=== PATIENT | male | born 1970 | race Caucasian/White ===

== ENCOUNTER 2024-11-27 13:28 | Observation (INO) | payer MEDICAID, SELFPAY ==
[2024-11-27] VITALS (8 sets, daily range): BP systolic 96–144; BP diastolic 54–88; PULSE 60–77; RESP 12–20; TEMP 36.7–36.8; O2SAT 97–98; BMI 49.7
--- NOTE | ~2024-11-27 | XR_ITS ---
EXAMINATION: XR CHEST 2 VIEWS HISTORY: chest pain COMPARISON: There are no prior studies available for comparison. FINDINGS: PA and lateral views of the chest are submitted. The lungs are expanded and clear. There is no pleural effusion, pneumothorax, or pulmonary vascular congestion. The heart is normal in size. The bones are intact. XR/XR chest 2V IMPRESSION: Clear lungs. Electronically signed by: Wenceslao Messer MD 11/27/2024 02:14 PM EDT
--- NOTE | 2024-11-27 13:31 | ECG_ITS ---
Test Reason : CHEST PAIN Blood Pressure : */* mmHG Vent. Rate : 73 BPM Atrial Rate : 73 BPM P-R Int : 168 ms QRS Dur : 92 ms QT Int : 362 ms P-R-T Axes : 50 -15 2 degrees QTcB Int : 398 ms Normal sinus rhythm Inferior infarct , age undetermined Cannot rule out Anterior infarct , age undetermined Abnormal ECG No previous ECGs available Referred By: Generic ED Physician Electronically Signed By: SAM AGUILAR
--- NOTE | 2024-11-27 13:54 | ED.CHESTPAIN ---
HPI - Chest Pain General Chief Complaint: Chest Pain Stated Complaint: CP/discomfort Time Seen by Provider: 11/27/24 16:04 Source: patient Mode of arrival: ambulatory Limitations: no limitations History of Present Illness ED Provider: Dr. Serna HPI narrative: 54-year-old male history of diabetes, obesity, occasional tobacco use, family history of cardiac problem on dad presented hospital today for evaluation of left-sided chest pain. Patient stated that he had achiness in the left shoulder earlier today. However he went to [facility] and noticed at his left shoulder pain was worsening and radiates into his left chest. Patient stated that it feels like a fullness in his chest. Patient is did has been an episode of nausea along with the shortness of breath in that moment. He currently is feeling better at this time. However he still has minor left-sided chest pain in the left shoulder pain he states it is 3/10 in nature. He did take 3 tablets of baby aspirin prior to arrival. He has Holter monitor performed in the past. He has follow up with his primary care doctor for that. He does have evaluation for vertigo as well. He noted that he becomes more dizzy when he ambulates. Related Data Allergies Allergy/AdvReac Type Severity Reaction Status Date / Time amoxicillin AdvReac Diarrhea Verified 11/27/24 13:52 clindamycin AdvReac Diarrhea Verified 11/27/24 13:52 Review of Systems Review of Systems: Pertinent review of systems as mentioned in HPI. All other system otherwise negative. [facility] Past Medical History [facility] Narrative: Medical history as mentioned in HPI Social History Social History Alcohol intake: current Smoked in Last 30 Days: No Use of substances other than those prescribed or required for medical reasons: No Advance Directives: No Advance Directives Information Provided: No Do you have a plan to hurt others: No Plan Physical Exam Exam: Exam: General: Pleasant, no distress, interacting appropriately Head: Normacephalic, atraumatic ENT: oral mucosa moist, neck supple, no tracheal deviation Cardiovascular: regular rate, regular rhythm, no murmurs, rubbing, gallops Respiratory: CTAB, no wheeze, rales, rhonchi Extremities: No swelling in lower extremities appreciated Neurological: Awake and alert, no facial droop noted Skin: Warm and dry Psychiatric: Appropriate mood and thoughts Vital Signs: Vital Signs: Last Vital Signs Temp 98.3 F 11/27/24 19:35 Pulse 73 11/27/24 19:35 Resp 20 11/27/24 19:35 BP 103/68 11/27/24 19:35 Pulse Ox 97 11/27/24 19:35 O2 Del Method Room Air 11/27/24 19:35 BMI result Body Mass Index 49.7 Course Course Course Narrative: Rapid medical examination performed in triage by Maude Page PA-C. Patient is a 54 year old assigned male at presenting to the emergency department with chest pain, nausea, fatigue, and dizziness. Detailed physical exam and review of systems are deferred to the substance abuse clinician. EKG, labs, imaging, and swabs ordered. Patient placed back in the waiting room pending room availability and results. Medications Administered Discontinued Medications Generic Name Dose Route Start Last Admin Trade Name Freq PRN Reason Stop Dose Admin Acetaminophen 975 mg 11/27/24 19:59 11/27/24 20:06 Acetaminophen 325 Mg Tablet PO 11/27/24 20:00 975 mg ONCE ONE Administration Aspirin 81 mg 11/27/24 16:28 11/27/24 17:12 Aspirin 81 Mg Tab.Chew PO 11/27/24 16:29 81 mg ONCE ONE Administration Sodium Chloride 1,000 mls @ 999 mls/hr 11/27/24 18:15 11/27/24 18:53 Ns IV 11/27/24 19:15 999 mls/hr .Q1H1M JARED Administration Nitroglycerin 0.4 mg 11/27/24 16:28 11/27/24 17:11 Nitroglycerin 0.4 Mg Tab.Subl SUBLINGUAL 11/27/24 16:29 0.4 mg ONCE ONE Administration Medical Decision Making Medical Decision Making [facility] Narrative: 54-year-old male presented hospital today for evaluation of left-sided chest pain. It started around 13:00 today. Review patient's EKG no sign of STEMI, 1st troponin is negative chest x-ray is unremarkable. Patient's lab work did not show any signs of significant abnormality that can cause his chest pain. At this time we will plan to give patient 81 mg of aspirin to complete his full load of aspirin to 324 mg. We will plan to give him 0.4 mg of nitroglycerin. We will plan to repeat a troponin here as well. Based on the patient's risk assessment. Patient has heart score of 4. We will reassess his nitroglycerin he will help with his chest pain. Patient's blood pressure dropped into the 90 systolic after nitroglycerin. Did give patient a bolus IV fluid. Blood pressure has improved to 1 0 . We will plan to admit patient for chest pain obs. His chest pain is better at this time. Given patient's risk factors. We will continue to observe the patient. Differential Diagnosis Differential Diagnoses: The differential diagnosis associated with the presentation includes ACS, CAD, STEMI, NSTEMI Lab Data MDM Lab Attestation statement: I reviewed the patient's lab results. 11/27/24 14:34 11/27/24 14:34 Labs: Lab Results 11/27/24 11/27/24 Range/Units 14:34 16:38 WBC 7.2 (4.8-10.8) X10*3/uL RBC 6.13 H (4.60-5.80) X10*6/uL Hgb 12.6 L (14.0-18.0) g/dl Hct 40.7 L (42.0-52.0) % MCV 66.4 L (80.0-98.0) fL MCH 20.6 L (27.0-33.0) pg MCHC 31.0 (31.0-36.0) g/dl RDW 17.1 H (11.0-16.0) % Plt Count 276 (160-400) X10*3/uL MPV 9.0 L (9.4-12.4) fL Immature Gran % (Auto) 0.6 H (0.0-0.4) % Neut % (Auto) 65.3 (45-73) % Lymph % (Auto) 22.1 (20-40) % [place] % (Auto) 8.1 (2-11) % Eos % (Auto) 2.9 (0-4) % Baso % (Auto) 1.0 (0-2) % Lymph # (Auto) 1.6 (1.2-4.9) X10*3/uL [place] # (Auto) 0.6 (0.1-1.2) X10*3/uL Eos # (Auto) 0.2 (0.0-0.4) X10*3/uL Baso # (Auto) 0.1 (0.0-0.2) X10*3/uL Abs Immat Gran (auto) 0.04 H (0.00-0.03) X10*3/uL Absolute Neuts (auto) 4.7 (2.0-8.3) x10*3/uL Absolute Nucleated RBC 0.000 (0.0-0.012) X10*3/uL Nucleated RBC % (auto) 0.0 (0.0-0.2) /100WBC PT 12.0 (10.9-12.4) SEC INR 1.0 (0.9-1.1) Sodium 141 (135-145) mmol/L Potassium 4.3 (3.3-5.1) mmol/L Chloride 106 (96-108) mmol/L Carbon Dioxide 28 (22-29) mmol/L Anion Gap 11 L (12-20) BUN 19 H (9-16) mg/dL Creatinine 0.90 (0.5-1.4) mg/dL Estim Creat Clear Calc 132.0 Estimated GFR > 60 Random Glucose 112 (60-115) mg/dL Calcium 9.1 (8.4-10.2) mg/dL Magnesium 2.0 (1.6-2.6) mg/dL Total Bilirubin 0.4 (0.0-1.0) mg/dL AST 31 (5-37) U/L ALT 55 H (0-40) U/L Alkaline Phosphatase 78 (39-117) U/L Troponin I High Sens < 2.7 < 2.7 (<3.5-35.0) ng/L Total Protein 6.7 (6.5-8.0) g/dL Albumin 4.4 (3.5-5.0) g/dL Independent Interpretation I performed an independent interpretation of an: EKG and Plain X-Ray Radiology Impression Discussion of test interpretation with radiology: I have reviewed the radiologist's reading. Discharge Plan Discharge Clinical Impression: Chest pain Qualifiers: Chest pain type: unspecified Qualified Code(s): R07.9 - Chest pain, unspecified Patient Disposition: Admitted As Inpatient Print Language: Lithuanian
[2024-11-27 14:38] LABS: MANUAL DIFF FLAG NO
[2024-11-27 14:44] LABS: Hematocrit 40.7 % (42.0-52.0); Hemoglobin 12.6 g/dl (14.0-18.0); Imm Gran Abs Auto 0.04 X10*3/uL (0.00-0.03); Imm Gran Pct Auto 0.6 % (0.0-0.4); Lymphocytes Absolute Auto 1.6 X10*3/uL (1.2-4.9); Mean Corpuscular HGB Conc 31.0 g/dl (31.0-36.0); Mean Corpuscular Hemoglobin 20.6 pg (27.0-33.0); Mean Corpuscular Volume 66.4 fL (80.0-98.0); NRBC Abs Auto 0.000 X10*3/uL (0.0-0.012); NRBC Pct Auto 0.0 /100WBC (0.0-0.2); Platelet Count 276 X10*3/uL (160-400); Red Blood Count 6.13 X10*6/uL (4.60-5.80); White Blood Count 7.2 X10*3/uL (4.8-10.8)
[2024-11-27 14:52] LABS: INTERNATIONAL NORM RATIO 1.0 (0.9-1.1); Prothrombin Time 12.0 SEC (10.9-12.4)
[2024-11-27 14:57] LABS: Alanine Aminotransferase 55 U/L (0-40); Albumin Level 4.4 g/dL (3.5-5.0); Alkaline Phosphatase 78 U/L (39-117); Anion Gap 11 (12-20); Aspartate Amino Transferase 31 U/L (5-37); Blood Urea Nitrogen 19 mg/dL (9-16); Calcium 9.1 mg/dL (8.4-10.2); Carbon Dioxide 28 mmol/L (22-29); Chloride 106 mmol/L (96-108); Creatinine Clr Calc Pharmacy 132.0; Estimated Glomerular Filt Rate > 60; Magnesium 2.0 mg/dL (1.6-2.6); Potassium 4.3 mmol/L (3.3-5.1); Sodium 141 mmol/L (135-145); Total Protein 6.7 g/dL (6.5-8.0)
[2024-11-27 15:07] LABS: Troponin-I High Sensitivity < 2.7 ng/L (<3.5-35.0)
--- NOTE | 2024-11-27 16:08 | PC.NURSE ---
54 M presents to ED with L chest to L shoulder since this morning, was not feeling well yesterday. Pt sts had this pain 3 months ago, went away and came back. Pt sts some SOB but RR even and unlabored. A+Ox4, calm, cooperative. Pt is ambulatory.
[2024-11-27 17:06] LABS: Troponin-I High Sensitivity < 2.7 ng/L (<3.5-35.0)
--- NOTE | 2024-11-27 18:03 | ECG_ITS ---
Test Reason : REPEAT CHEST PAIN Blood Pressure : */* mmHG Vent. Rate : 66 BPM Atrial Rate : 66 BPM P-R Int : 172 ms QRS Dur : 98 ms QT Int : 398 ms P-R-T Axes : 25 -9 3 degrees QTcB Int : 417 ms Normal sinus rhythm with sinus arrhythmia Normal ECG When compared with ECG of 27-Nov-2024 13:37, No significant change was found Referred By: Joan Serna Electronically Signed By: SAM AGUILAR
--- NOTE | 2024-11-27 19:20 | PC.NURSE ---
assumed care of pt, pt denies pain,states he feels a sense of fullness in the chest but not pain. b/p 100/67. respirations even and unlabored.
--- NOTE | 2024-11-27 20:09 | PC.NURSE ---
pt states headache from nitro paste seems to be coming back, headache pain 10/08. provider advised, new orders for Tylenol placed. Pt medicated per APR, lights dimmed.
--- NOTE | 2024-11-27 20:38 | PM.IMHP ---
History of Present Illness Date of Service: 11/27/24 Attending physician on admission: Yaz Martinez Chief Complaint: Chest pressure Jaime Fields is a very pleasant 54 years old man with a past medical history significant for type 2 diabetes mellitus on Mounjaro, thalassemia minor, PRATIK on CPAP and obesity presents to the emergency department complaining of left-sided chest pressure that started today in the evening associated with left shoulder pain, nausea and dizziness. He also reports some mild shortness on breath. He denied any events of vomiting, abdominal pain or diarrhea. He does complain of some headache after being treated with nitroglycerin. Prior to presentation to the emergency department he took couple of aspirins. Patient mentioned that 3 months ago he was evaluated for dizziness. He had a Holter monitor that came only remarkable for occasional PVCs. He also underwent hearing testing which came back unremarkable and has been scheduled for vestibular test in January of this year. Family history is remarkable for CT (father, late 60s). He denied personal history of myocardial infarction. He smokes cigars in occasions. Denied alcohol abuse or illicit drug use. In the ED, he was found to have normal vital signs. His blood pressure dropped to 96/54 after receiving nitroglycerin. Most recent blood pressure is 103/68. Blood workup showed no leukocytosis. Hemoglobin is 12.6, MCV 66.4 and platelets 276. INR is 1.0. LFTs are normal. BUN is 19 and creatinine 0.90. Glucose is 112. LFTs are unremarkable except for slight elevation of ALT. Troponin is negative x2, < 2.7. CXR showed clear lungs. ECG x2 showed no acute ischemic changes. ED tx: Aspirin 81 mg p.o., nitro 0.5 mg sublingual, NS 1 L bolus, acetaminophen 975 mg PO Review of Systems Review of Systems: All 12 systems were reviewed and normal except as noted in HPI. [facility] Medical History (Updated 11/27/24 @ 20:58 by Yaz Martinez MD) Obstructive sleep apnea on CPAP High altitude sickness Type 2 diabetes mellitus Obesity Thalassemia minor Surgical History (Updated 11/27/24 @ 20:55 by Yaz Martinez MD) History of inguinal herniorrhaphy H/O Achilles tendon repair History of testicular surgery Social History Alcohol intake: current Patient Tobacco Use Status: Tobacco use Unknown Smoked in Last 30 Days: No Use of substances other than those prescribed or required for medical reasons: No Advance Directives: No Advance Directives Information Provided: No Do you have a plan to hurt others: No Plan Nutrition Risks: No Nutritional Risk Meds Allergies Allergy/AdvReac Type Severity Reaction Status Date / Time amoxicillin AdvReac Diarrhea Verified 11/27/24 13:52 clindamycin AdvReac Diarrhea Verified 11/27/24 13:52 Active Medications: Current Medications Acetaminophen (Acetaminophen 325 Mg Tablet) 650 mg PO Q6H PRN PRN Reason: Pain, Mild 1-3,fever,headache Calcium Carbonate (Calcium Carbonate 750 Mg Tab.Chew) 750 mg PO Q4H PRN PRN Reason: Heartburn Dextrose (Dextrose 50 % 25 Gm/50 Ml Syringe) 25 gm IVPUSH Q15M PRN; Protocol PRN Reason: per Hypoglycemia Standing Ord. Enoxaparin Sodium (Enoxaparin Sodium 40 Mg/0.4 Ml Syringe) 40 mg SUBCUT Q24H JARED Glucose (Glucose Gel 15 Gm Gel..Gram.) 15 gm PO Q15M PRN; Protocol PRN Reason: per Hypoglycemia Standing Ord. Insulin Human Lispro (Insulin Lispro 100 Unit/Ml 3 Ml Vial) 0 unit SUBCUT QIDACHS [facility]; Protocol Magnesium Hydroxide (Milk Of Magnesia 30 Ml Oral.Susp) 30 ml PO DAILY PRN PRN Reason: Constipation Melatonin (Melatonin 3 Mg Tablet) 6 mg PO BEDTIME PRN PRN Reason: Insomnia Sodium Chloride (0.9 % Sodium Chloride Flush 3 Ml Syringe) 3 ml IVFLUSH QSHIFT [facility] Home Medications ?Medication ?Instructions ?Recorded ?Confirmed ?Last Taken ?Type melatonin 5 mg tablet 5 - 10 mg PO BEDTIME PRN Sleep 11/27/24 11/27/24 Unknown History tirzepatide 7.5 mg/0.5 mL 7.5 mg subcut WE 11/27/24 11/27/24 11/15/24 History subcutaneous pen injector (Jacque) Physical Exam Vital Signs and Narrative: Vital Signs: Last Vital Signs Temp 98.3 F 11/27/24 20:10 Pulse 73 11/27/24 20:10 Resp 20 11/27/24 20:10 BP 103/68 11/27/24 20:10 Pulse Ox 97 11/27/24 20:10 O2 Del Method Room Air 11/27/24 20:10 BMI result Body Mass Index 49.7 Constitutional - Awake and Alert, No apparent distress. Pleasant. Obese. HEENT - PERR, EOMI Heart - S1S2, RRR, No edema Lungs - Normal lung expansion, Normal respiratory effort, No respiratory distress, CTA bilaterally Abdomen - NT / ND; +BS; No rebound or guarding - No CVA tenderness Extremities - no calf tenderness bilaterally, no swelling Musculoskeletal - Normal inspection, normal ROM Skin - Warm/Dry Neurological - Alert & oriented x3, moving all extremities spontaneously. Normal speech. Psychological - Appropriate affect Results Labs 11/27/24 14:34 11/27/24 14:34 Labs: Laboratory Results - last 24 hr 11/27/24 11/27/24 14:34 16:38 MCV 66.4 L MCH 20.6 L MCHC 31.0 RDW 17.1 H Plt Count 276 MPV 9.0 L Immature Gran % (Auto) 0.6 H Neut % (Auto) 65.3 Lymph % (Auto) 22.1 [place] % (Auto) 8.1 Eos % (Auto) 2.9 Baso % (Auto) 1.0 Lymph # (Auto) 1.6 [place] # (Auto) 0.6 Eos # (Auto) 0.2 Baso # (Auto) 0.1 Abs Immat Gran (auto) 0.04 H Absolute Neuts (auto) 4.7 Absolute Nucleated RBC 0.000 Nucleated RBC % (auto) 0.0 PT 12.0 INR 1.0 Anion Gap 11 L Estim Creat Clear Calc 132.0 Estimated GFR > 60 Random Glucose 112 Calcium 9.1 Magnesium 2.0 Total Bilirubin 0.4 AST 31 ALT 55 H Alkaline Phosphatase 78 Troponin I High Sens < 2.7 < 2.7 Total Protein 6.7 Albumin 4.4 Imaging Radiologist's Impressions: Impressions Chest X-Ray 11/27/24 14:05 IMPRESSION: Clear lungs. Electronically signed by: Wenceslao Messer MD 11/27/2024 02:14 PM EDT Assessment and Plan (1) Chest pain: Qualifiers: Chest pain type: unspecified Qualified Code(s): R07.9 - Chest pain, unspecified Status: Acute (2) Microcytic anemia: Status: Acute Plan Jaime Fields this is a 54 y/o man who present to the ED with: Chest pain/pressure, ?ACS. Observation. Telemetry. Continue aspirin 81 mg p.o. daily. Recheck troponin. Obtain TTE. Check fasting lipid panel. Cardiac diet. Cardiology consult. Type 2 diabetes mellitus. On Mounjaro. BG checks before meals at bedtime. Insulin sliding scale. Diabetic diet. Microcytic anemia, history of thalassemia minor. Recheck in the morning. Obstructive sleep apnea. Nocturnal CPAP. Obesity. BMI 49.7. Continue Mounjaro. Lifestyle changes. Code status: Full This note is constructed using voice recognition software. While every effort has been made to ensure accuracy, power brake rebuilder errors may have been included. Quality Stroke Does the patient have a stroke diagnosis?: No VTE Prior VTE?: No VTE Risk Level:: Medical - moderate - high VTE Device Contraindication: Treatment Not Indicated VTE Drug Contraindication: N/A - Med Ordered
--- NOTE | 2024-11-27 20:43 | PHA.MEDREC ---
Addendum entered by Dangelo Moreland PharmD 11/27/24 20:49: reviewed Original Note: Pharmacy Consult ? Medication Reconciliation Pharmacy has completed the medication reconciliation. Patient confirmed he takes Mounjaro 7.5 mg every Wednesday, last dose 11/15/24.
--- NOTE | 2024-11-27 21:00 | PC.NURSE ---
POC 95, per protocol no insulin given.
[2024-11-27 21:03] LABS: Glucose, Whole Blood 95 mg/dL (60-115)
[2024-11-28] MEDS: 0.9 % Sodium Chloride Flush 3 ML SYRINGE IVFLUSH ×2 (01:04→07:20)
[2024-11-28 01:39] VITALS: BP 99/51; PULSE 56; RESP 22; TEMP 36.6; O2SAT 97
[2024-11-28 02:10] LABS: Troponin-I High Sensitivity < 2.7 ng/L (<3.5-35.0)
[2024-11-28 02:15] VITALS: PULSE 64; RESP 18
--- NOTE | 2024-11-28 07:00 | CA_ITS ---
Transthoracic Echocardiogram Patient (Last, First, Middle): Jaime Fields, Gender: M Date of : 1970 Age: 54 Procedure Date: 11/28/2024 Procedure Type: Transthoracic Echocardiogram Location: ER Height: 170.18 cm Weight: 143.79 kg BSA: 2.46 m2 Heart Rate: bpm BP: 99 / 51 mmHg [employer]: Referring MD: Yaz Martinez MD Symptoms: Chest pain Study Quality: Adequate w contrast ECG Rhythm: Sinus Conclusions: - The left ventricular systolic function is normal. The calculated ejection fraction is 63% by biplane method. - No obvious valvular pathology seen on this study. Findings Procedure Information Contrast agent, definity, is being given per protocol without apparent complications. Left Ventricle Normal left ventricular cavity size. There is mildly increased left ventricular wall thickness. The left ventricular systolic function is normal. The calculated ejection fraction is 63% by biplane method. There is no evidence of regional wall motion abnormalities. Diastolic function is normal for age. Right Ventricle Moderately increased right ventricular cavity size. There is normal right ventricular systolic function. Aortic Valve There is a normal trileaflet aortic valve. There is no aortic valve stenosis. There is no aortic valve regurgitation. Mitral Valve The mitral valve appears normal. There is no mitral valve regurgitation. There is no mitral valve stenosis. Pulmonic Valve The pulmonic valve is likely normal. Tricuspid Valve There is trace tricuspid valve regurgitation. There is no evidence of pulmonary hypertension. Great Vessels The asc aorta is normal in size. Venous The inferior vena cava was not well visualized. The inferior vena cava is normal in size. Pericardium/Pleural There is no evidence of pericardial effusion. Prior Study Comparison No prior study available for comparison. Recommendations, Care & Conclusions No obvious valvular pathology seen on this study. Measurements 2D Linear Measurements IVSd: 1.21 0.6-0.9/0.6-1.0 cm LVIDd: 4.55 3.9-5.3/4.2-5.9 cm LVIDd Index: 1.85 2.4-3.2/2.2-3.1 cm/m2 LVIDs: 2.96 2.0-3.6 cm LVPWd: 1.21 0.7-1.1 cm Ao Root: 3.70 2.1-3.5 cm LA Diam: 4.00 2.7-3.8/3.0-4.0 cm LAIDs Index: 1.63 1.5-2.3 cm/m2 LV Mass: 254.19 67-162/88-224 g LV Mass Index: 103.33 43-95/49-115 g/m2 LVOT Diam: 2.40 3.0+(-)1.3 cm 2D Systolic Function EF 4C: 69.30 >55% EF 2C: 53.80 >55% EF BiP: 62.70 >55% Mitral Valve MV Pk E: 0.73 MV PK A: 0.75 MV Decel Time: 195.00 E/A: 1.00 E'Lateral: 11.20 E'Medial: 9.68 E/E' Med: 7.50 E/E' Lat: 6.50 PHT: 57.00 MVA PHT: 3.86 Decel [place]: 3.74 Aortic Valve AoV Pk Jose J: 1.06 AoV Mn Jose J: 0.77 AoV VTI: 0.26 AoV Pk Grad: 4.00 Aov Mn Grad: 3.00 REYNALDO Cont.VTI: 2.80 LVOT LVOT Pk Jose J: 0.68 LVOT Mn Jose J: 0.50 LVOT VTI: 0.16 LVOT Pk Grad: 2.00 LVOT Mn Grad: 1.00 LVOT Diam: 2.40 LVOT Area: 4.52 Diastolic Function MV Pk E: 0.73 MV Pk A: 0.75 E/A: 1.00 E'Medial: 9.68 E/E' Med: 7.50 E' Laterial: 11.20 E/E' Lat: 6.50 Right Ventricle TAPSE (mm): 32.50 TVS' Jose J: 14.60 Tricuspid Valve TR Pk Jose J: 2.22 TR Pk Grad: 20.00 Great Vessels Aorta Ao Root-2D: 3.70 2.0-3.7 cm Ao Asc: 3.60 2.1-3.4 cm Pulmonary Valve PV Pk Jose J: 1.20 Peak PV Grad: 6.00 Updated in Other Vendor System with Status of Final Layo Kirby MD electronically signed on 11/28/2024 11:49:24 AM with status of Final
[2024-11-28 07:17] LABS: Glucose, Whole Blood 163 mg/dL (60-115)
--- NOTE | 2024-11-28 07:28 | PC.NURSE ---
patient a&ox3, rr equal/non labored, [employer] operations consultant intact- nsr 70s, pt morning poc was 163- pt refusing insulin- provider notified. pt denies pain/discomfort. pt had labs ordered this morning, phlebotomy came to bedside stating they couldnt draw him because the labs were fasting, this nurse contacted Dr. white (provider) who stated pt did not need the labs drawn again- will notify phlebotomy. call centeno within reach, plan of care ongoing.
[2024-11-28 07:40] VITALS: BP 115/68; PULSE 64; RESP 16; TEMP 36.6; O2SAT 96
--- NOTE | 2024-11-28 08:30 | HO.PM.IMPN ---
Subjective Subjective Date of Service: 11/28/24 Interval History: cp resolved Physical Exam Exam: Exam: General: AO X 3, no acute distress Resp: CTA bilateral, no accessory muscles used CVS: S1,S2,RRR GI: soft, non tender, non distended Neuro: motor grossly intact, alert Psych: appropriate affect, appropriate insight Vital Signs: Vital Signs: Last Vital Signs Temp 97.8 F 11/28/24 07:40 Pulse 64 11/28/24 07:40 Resp 16 11/28/24 07:40 BP 115/68 11/28/24 07:40 Pulse Ox 96 11/28/24 07:40 O2 Del Method Nasal Cannula 11/28/24 07:40 BMI result Body Mass Index 49.7 Objective Data Active Medications Acetaminophen (Acetaminophen 325 Mg Tablet) 650 mg PO Q6H PRN PRN Reason: Pain, Mild 1-3,fever,headache Aspirin (Aspirin Enteric Coated 81 Mg Tablet.Dr) 81 mg PO DAILY JARED Calcium Carbonate (Calcium Carbonate 750 Mg Tab.Chew) 750 mg PO Q4H PRN PRN Reason: Heartburn Dextrose (Dextrose 50 % 25 Gm/50 Ml Syringe) 25 gm IVPUSH Q15M PRN; Protocol PRN Reason: per Hypoglycemia Standing Ord. Enoxaparin Sodium (Enoxaparin Sodium 40 Mg/0.4 Ml Syringe) 40 mg SUBCUT Q24H JARED Glucose (Glucose Gel 15 Gm Gel..Gram.) 15 gm PO Q15M PRN; Protocol PRN Reason: per Hypoglycemia Standing Ord. Insulin Human Lispro (Insulin Lispro 100 Unit/Ml 3 Ml Vial) 0 unit SUBCUT QIDACHS [facility]; Protocol Last Admin: 11/28/24 07:21 Dose: Not Given Documented By: CANDIE Non-Admin Reason: Patient Refused Magnesium Hydroxide (Milk Of Magnesia 30 Ml Oral.Susp) 30 ml PO DAILY PRN PRN Reason: Constipation Melatonin (Melatonin 3 Mg Tablet) 6 mg PO BEDTIME PRN PRN Reason: Insomnia Sodium Chloride (0.9 % Sodium Chloride Flush 3 Ml Syringe) 3 ml IVFLUSH QSHIFT [facility] Last Admin: 11/28/24 07:20 Dose: 3 ml Documented By: CANDIE Labs 11/27/24 14:34 11/27/24 14:34 Labs: Laboratory Results - last 24 hr 11/27/24 11/27/2411/27/25 14:34 16:38 20:59 MCV 66.4 L MCH 20.6 L MCHC 31.0 RDW 17.1 H Plt Count 276 MPV 9.0 L Immature Gran % (Auto) 0.6 H Neut % (Auto) 65.3 Lymph % (Auto) 22.1 [place] % (Auto) 8.1 Eos % (Auto) 2.9 Baso % (Auto) 1.0 Lymph # (Auto) 1.6 [place] # (Auto) 0.6 Eos # (Auto) 0.2 Baso # (Auto) 0.1 Abs Immat Gran (auto) 0.04 H Absolute Neuts (auto) 4.7 Absolute Nucleated RBC 0.000 Nucleated RBC % (auto) 0.0 PT 12.0 INR 1.0 Anion Gap 11 L Estim Creat Clear Calc 132.0 Estimated GFR > 60 POC Glucose 95 Random Glucose 112 Calcium 9.1 Magnesium 2.0 Total Bilirubin 0.4 AST 31 ALT 55 H Alkaline Phosphatase 78 Troponin I High Sens < 2.7 < 2.7 Total Protein 6.7 Albumin 4.4 11/28/24 11/28/24 01:45 07:13 MCV MCH MCHC RDW Plt Count MPV Immature Gran % (Auto) Neut % (Auto) Lymph % (Auto) [place] % (Auto) Eos % (Auto) Baso % (Auto) Lymph # (Auto) [place] # (Auto) Eos # (Auto) Baso # (Auto) Abs Immat Gran (auto) Absolute Neuts (auto) Absolute Nucleated RBC Nucleated RBC % (auto) PT INR Anion Gap Estim Creat Clear Calc Estimated GFR POC Glucose 163 H Random Glucose Calcium Magnesium Total Bilirubin AST ALT Alkaline Phosphatase Troponin I High Sens < 2.7 Total Protein Albumin Assessment and Plan (1) Chest pain: Status: Acute Plan 54M PMH dm, thalassemia minor, arina on cpap, morbid obesity presented with chest pain chest pain resolved, no evidence of ACS cardio eval, echo pending Diabetes Insulin sliding scale Obstructive sleep apnea CPAP Morbid obesity Weight loss recommended DVT prophylaxis with Lovenox Full code reason for continued hospitalization:cardio eval pending Quality Stroke Does the patient have a stroke diagnosis?: No VTE Prior VTE?: No VTE Risk Level:: Medical - moderate - high VTE Device Contraindication: Treatment Not Indicated VTE Drug Contraindication: N/A - Med Ordered
--- NOTE | 2024-11-28 08:39 | CA_ITS ---
Acquisition Time: 2024-11-28 10:18:12 Total Exercise Time: 00:04:46 Test Indications: CP /L SHOULDER PAIN,Dizzy Spells Medications: SEE EMAR Protocol: KATIE Max HR: 150 BPM 89% of Pred: 168 BPM Max BP: 158/60 mmHG Max Work Load: 6.7 METS Exercise stress test with exercise 4 min 46 sec of Katie protocol, achieving 88% MPHR, with moderate shortness of breath and fatigue, without arrythmia, with normotensive response to exercise, without EKG changes meeting criteria for ischemia. In recovery shortness of breath quickly improved. Between 3 - 5 minutes of recovery he reported a 1-2/ 10 left shoulder ache that resolved. Test reviewed with Dr Kirby. Referred By: Layo Kirby Electronically Signed By: JOSE DEE
[2024-11-28 08:40] LABS: MANUAL DIFF FLAG NO
[2024-11-28 08:44] LABS: Hematocrit 39.8 % (42.0-52.0); Hemoglobin 12.5 g/dl (14.0-18.0); Imm Gran Abs Auto 0.01 X10*3/uL (0.00-0.03); Imm Gran Pct Auto 0.1 % (0.0-0.4); Lymphocytes Absolute Auto 1.8 X10*3/uL (1.2-4.9); Mean Corpuscular HGB Conc 31.4 g/dl (31.0-36.0); Mean Corpuscular Hemoglobin 20.7 pg (27.0-33.0); Mean Corpuscular Volume 65.8 fL (80.0-98.0); NRBC Abs Auto 0.000 X10*3/uL (0.0-0.012); NRBC Pct Auto 0.0 /100WBC (0.0-0.2); Platelet Count 260 X10*3/uL (160-400); Red Blood Count 6.05 X10*6/uL (4.60-5.80); White Blood Count 6.9 X10*3/uL (4.8-10.8)
[2024-11-28 08:55] LABS: Anion Gap 11 (12-20); Blood Urea Nitrogen 16 mg/dL (9-16); Calcium 8.7 mg/dL (8.4-10.2); Carbon Dioxide 27 mmol/L (22-29); Chloride 105 mmol/L (96-108); Cholesterol 178 mg/dL (<200); Creatinine Clr Calc Pharmacy 126.4; Estimated Glomerular Filt Rate > 60; HDL Cholesterol 44 mg/dL (>40); Potassium 3.9 mmol/L (3.3-5.1); Sodium 139 mmol/L (135-145); Triglycerides 177 mg/dL (<150)
--- NOTE | 2024-11-28 09:01 | P.CONCA_ITS ---
History of Present Illness History of Present Illness Date of Service: 11/28/24 Chief complaint: Chest pain Narrative: This is a cardiology consultation regarding chest pain. Patient does not have any known cardiac issues including coronary disease or myocardial infarction or cardiomyopathy or in fact any other cardiac concerns. He states that he has been getting episodes of chest fullness that he describes in the left upper chest near the shoulder area. It can happen randomly. Most recently happened yesterday and that led to the current presentation. He received nitroglycerin and after that, there was subtle improvement. EKG and troponins were unremarkable. Eventually, he was admitted for further care. Currently, he states he feels well. No previously diagnosed coronary artery disease. Has obesity, obstructive sleep apnea, type 2 diabetes and thalassemia minor. Review of Systems 2 Review of Systems: Yes all other systems are reviewed and are negative Constitutional: Constitutional: Reports as per HPI and Reports no additional constitutional complaints Eyes: Eyes: Reports as per HPI and Denies no additional eye complaints ENT: Denies system reviewed and no additional complaints, except as documented and Reports as per HPI Cardiovascular: Cardiovascular: Reports as per HPI, Reports no additional cardiovascular complaints, Denies acrocyanosis, Denies cool extremities, Denies chest pain, Denies leg edema, Denies lightheadedness, Denies palpitations and Denies dyspnea Respiratory: Respiratory: Reports as per HPI, Denies no additional respiratory complaints and Denies dyspnea Gastrointestinal: Gastrointestinal: Reports as per HPI and Denies no additional gastrointestinal complaints Genitourinary: Genitourinary: Reports no additional male genitourinary complaints and Reports as per HPI Musculoskeletal: Musculoskeletal: Reports no additional musculoskeletal complaints and Reports as per HPI Integumentary/Breasts: Skin/Breast: Reports system reviewed and no additional complaints, except as docu Neurologic: Reports system reviewed and no additional complaints, except as documented and Reports as per HPI Psychiatric: Psychiatric: Reports no additional psychiatric complaints and Reports as per HPI Endocrine: Endocrine: Reports no additional endocrine complaints, Reports as per HPI and Denies palpitations Hematologic/Lymphatic: Hematologic/Lymphatic: Reports no additional hematologic/lymphatic complaints and Reports as per HPI Allergic/Immunologic: Allergic/Immunologic: Reports no additional allergic/immunologic complaints and Reports as per HPI [facility] Past Medical History Medical History (Updated 11/27/24 @ 20:58 by Yaz Martinez MD) Obstructive sleep apnea on CPAP High altitude sickness Type 2 diabetes mellitus Obesity Thalassemia minor Family History Family History (Updated 11/28/24 @ 09:06 by Layo Kirby MD) Father Myocardial infarction Stroke Mother DVT (deep venous thrombosis) Congestive heart failure Pacemaker Surgical History Surgical History (Updated 11/27/24 @ 20:55 by Yaz Martinez MD) History of inguinal herniorrhaphy H/O Achilles tendon repair History of testicular surgery Social History Social History Alcohol intake: current Patient Tobacco Use Status: Tobacco use Unknown Smoked in Last 30 Days: No Use of substances other than those prescribed or required for medical reasons: No Advance Directives: No Advance Directives Information Provided: No Do you have a plan to hurt others: No Plan Nutrition Risks: No Nutritional Risk Meds Allergies Allergy/AdvReac Type Severity Reaction Status Date / Time amoxicillin AdvReac Diarrhea Verified 11/27/24 13:52 clindamycin AdvReac Diarrhea Verified 11/27/24 13:52 Active Medications: Current Medications Acetaminophen (Acetaminophen 325 Mg Tablet) 650 mg PO Q6H PRN PRN Reason: Pain, Mild 1-3,fever,headache Aspirin (Aspirin Enteric Coated 81 Mg Tablet.Dr) 81 mg PO DAILY JARED Calcium Carbonate (Calcium Carbonate 750 Mg Tab.Chew) 750 mg PO Q4H PRN PRN Reason: Heartburn Dextrose (Dextrose 50 % 25 Gm/50 Ml Syringe) 25 gm IVPUSH Q15M PRN; Protocol PRN Reason: per Hypoglycemia Standing Ord. Enoxaparin Sodium (Enoxaparin Sodium 40 Mg/0.4 Ml Syringe) 40 mg SUBCUT Q24H JARDE Glucose (Glucose Gel 15 Gm Gel..Gram.) 15 gm PO Q15M PRN; Protocol PRN Reason: per Hypoglycemia Standing Ord. Insulin Human Lispro (Insulin Lispro 100 Unit/Ml 3 Ml Vial) 0 unit SUBCUT QIDACHS [facility]; Protocol Last Admin: 11/28/24 07:21 Dose: Not Given Magnesium Hydroxide (Milk Of Magnesia 30 Ml Oral.Susp) 30 ml PO DAILY PRN PRN Reason: Constipation Melatonin (Melatonin 3 Mg Tablet) 6 mg PO BEDTIME PRN PRN Reason: Insomnia Sodium Chloride (0.9 % Sodium Chloride Flush 3 Ml Syringe) 3 ml IVFLUSH QSHIFT [facility] Last Admin: 11/28/24 07:20 Dose: 3 ml Home Medications ?Medication ?Instructions ?Recorded ?Confirmed ?Last Taken ?Type melatonin 5 mg tablet 5 - 10 mg PO BEDTIME PRN Sle ep 11/27/24 11/27/24 Unknown History tirzepatide 7.5 mg/0.5 mL 7.5 mg subcut WE 11/27/2411/15/24 History subcutaneous pen injector (Jacque) Physical Exam 2 Vital Signs: Vital Signs: Last Vital Signs Temp 97.8 F 11/28/24 07:40 Pulse 64 11/28/24 07:40 Resp 16 11/28/24 07:40 BP 115/68 11/28/24 07:40 Pulse Ox 96 11/28/24 07:40 O2 Del Method Nasal Cannula 11/28/24 07:40 BMI result Body Mass Index 49.7 Const: General: comfortable and no acute distress O rientation/consciousness: patient oriented x3 HEENT: Other: Unremarkable Head: Yes normal to inspection Neck: Neck: Yes normal visual inspection Chest: Chest palpation & inspection: normal inspection of the chest Resp: Auscultation: clear to auscultation bilaterally Cardio: Palpation: normal PMI Heart sounds: S1 normal heart sound present, S2 normal heart sound present, no gallops, no murmurs and no rubs GI: Palpation (GI): Soft to palpation Back/Spine/Pelvis: Other: unremarkable Skin: General skin exam: no rashes or lesions noted Neuro: General: patient oriented x3 Extrem: General: Yes normal to inspection Psych: Mental Status: mental status grossly normal Objective Labs and Meds 11/28/24 08:10 11/28/24 08:10 Lab results: Laboratory Results - last 24 hr 11/27/24 11/27/24 11/27/24 14:34 16:38 20:59 WBC 7.2 RBC 6.13 H Hgb 12.6 L Hct 40.7 L MCV 66.4 L MCH 20.6 L MCHC 31.0 RDW 17.1 H Plt Count 276 MPV 9.0 L Immature Gran % (Auto) 0.6 H Neut % (Auto) 65.3 Lymph % (Auto) 22.1 [place] % (Auto) 8.1 Eos % (Auto) 2.9 Baso % (Auto) 1.0 Lymph # (Auto) 1.6 [place] # (Auto) 0.6 Eos # (Auto) 0.2 Baso # (Auto) 0.1 Abs Immat Gran (auto) 0.04 H Absolute Neuts (auto) 4.7 Absolute Nucleated RBC 0.000 Nucleated RBC % (auto) 0.0 PT 12.0 INR 1.0 Sodium 141 Potassium 4.3 Chloride 106 Carbon Dioxide 28 Anion Gap 11 L BUN 19 H Creatinine 0.90 Estim Creat Clear Calc 132.0 Estimated GFR > 60 POC Glucose 95 Random Glucose 112 Calcium 9.1 Magnesium 2.0 Total Bilirubin 0.4 AST 31 ALT 55 H Alkaline Phosphatase 78 Troponin I High Sens < 2.7 < 2.7 Total Protein 6.7 Albumin 4.4 Triglycerides Cholesterol LDL Cholesterol, Calc HDL Cholesterol 11/28/24 11/28/24 11/28/24 01:45 07:13 08:10 WBC 6.9 RBC 6.05 H Hgb 12.5 L Hct 39.8 L MCV 65.8 L MCH 20.7 L MCHC 31.4 RDW 15.9 Plt Count 260 MPV 9.0 L Immature Gran % (Auto) 0.1 Neut % (Auto) 64.7 Lymph % (Auto) 26.1 [place] % (Auto) 5.0 Eos % (Auto) 3.2 Baso % (Auto) 0.9 Lymph # (Auto) 1.8 [place] # (Auto) 0.3 Eos # (Auto) 0.2 Baso # (Auto) 0.1 Abs Immat Gran (auto) 0.01 Absolute Neuts (auto) 4.4 Absolute Nucleated RBC 0.000 Nucleated RBC % (auto) 0.0 PT INR Sodium 139 Potassium 3.9 Chloride 105 Carbon Dioxide 27 Anion Gap 11 L BUN 16 Creatinine 0.94 Estim Creat Clear Calc 126.4 Estimated GFR > 60 POC Glucose 163 H Random Glucose 214 H Calcium 8.7 Magnesium Total Bilirubin AST ALT Alkaline Phosphatase Troponin I High Sens < 2.7 Total Protein Albumin Triglycerides 177 H Cholesterol 178 LDL Cholesterol, Calc 99 HDL Cholesterol 44 ECG Interpretation: EKG with sinus rhythm at 73/Min; nonspecific changes in inferior leads which is most likely normal variant; poor progression in anterior leads related to body habitus; normal OK and corrected QT. Follow up EKGs unremarkable. Imaging Radiologist's impression: Impressions Chest X-Ray 11/27/24 14:05 IMPRESSION: Clear lungs. Electronically signed by: Wenceslao Messer MD 11/27/2024 02:14 PM EDT Assessment and Plan (1) Chest pain: Qualifiers: Chest pain type: unspecified Qualified Code(s): R07.9 - Chest pain, unspecified Status: Acute Plan Recurrent episodes of chest pain with multiple risk factors. However, not entirely convincing for angina either. EKG and high sensitivity troponins are unremarkable. No evidence of ACS. We will pursue further workup with an echocardiogram and exercise stress test while he is here. If these are unremarkable, we will plan on coronary CTA as an outpatient. Patient agrees with the current plan. Procedures Date of Service Date of Service: 11/28/24
[2024-11-28 09:08] LABS: Reflex LDLD? No
[2024-11-28] MEDS: Aspirin Enteric Coated 81 MG TABLET.DR PO (09:13)
--- NOTE | 2024-11-28 10:16 | PC.NURSE ---
pt left for cardiac stress test, will return after testing has been completed
--- NOTE | 2024-11-28 11:54 | PM.DS ---
DS: Providers Provider Date of Service: 11/28/24 Date of admission: 11/27/24 20:05 Date of discharge: 11/28/24 Primary care physician: Umang Avendaño MD Consults: 11/27/24 20:43 Consult to Cardiology Routine Consulting Provider: [facility] Reason for consultation: Chest pain Has provider been notified: No DS: Diagnosis Discharge Diagnosis (1) Chest pain: Status: Acute DS: Summary Hospital Course Hospital Course: from initial hpi: Jaime Fields is a very pleasant 54 years old man with a past medical history significant for type 2 diabetes mellitus on Mounjaro, thalassemia minor, PRATIK on CPAP and obesity presents to the emergency department complaining of left-sided chest pressure that started today in the evening associated with left shoulder pain, nausea and dizziness. He also reports some mild shortness on breath. He denied any events of vomiting, abdominal pain or diarrhea. He does complain of some headache after being treated with nitroglycerin. Prior to presentation to the emergency department he took couple of aspirins. Patient mentioned that 3 months ago he was evaluated for dizziness. He had a Holter monitor that came only remarkable for occasional PVCs. He also underwent hearing testing which came back unremarkable and has been scheduled for vestibular test in January of this year. Family history is remarkable for MD (father, late 60s). He denied personal history of myocardial infarction. He smokes cigars in occasions. Denied alcohol abuse or illicit drug use. In the ED, he was found to have normal vital signs. His blood pressure dropped to 96/54 after receiving nitroglycerin. Most recent blood pressure is 103/68. Blood workup showed no leukocytosis. Hemoglobin is 12.6, MCV 66.4 and platelets 276. INR is 1.0. LFTs are normal. BUN is 19 and creatinine 0.90. Glucose is 112. LFTs are unremarkable except for slight elevation of ALT. Troponin is negative x2, < 2.7. CXR showed clear lungs. ECG x2 showed no acute ischemic changes. ED tx: Aspirin 81 mg p.o., nitro 0.5 mg sublingual, NS 1 L bolus, acetaminophen 975 mg PO hospital course: Patient was admitted for chest pain, chest pain resolved, had no evidence of acute coronary syndrome. Was seen by Cardiology performed stress test which was unremarkable recommended discharge home with outpatient follow up. For diabetes was continued on insulin sliding scale. For PRATIK was continued on CPAP. For morbid obesity weight loss recommended. Time Attestation Discharge Coordination Time (in mins): 34 Quality: Safe Use of Opioids Does Pt have an Active Cancer Diagnosis on the Problem List?: No Quality: Stroke Does the patient have a stroke diagnosis?: No Physical Exam Exam: Exam: General: AO X 3, no acute distress Resp: CTA bilateral, no accessory muscles used CVS: S1,S2,RRR GI: soft, non tender, non distended Neuro: motor grossly intact, alert Psych: appropriate affect, appropriate insight Vital Signs: Vital Signs: Last Vital Signs Temp 97.8 F 11/28/24 07:40 Pulse 64 11/28/24 07:40 Resp 16 11/28/24 07:40 BP 115/68 11/28/24 07:40 Pulse Ox 96 11/28/24 07:40 O2 Del Method Nasal Cannula 11/28/24 07:40 BMI result Body Mass Index 49.7 DS: Data Data Completed and Pending Labs on day of discharge: Laboratory Results - last 24 hr 11/27/24 11/27/24 11/27/24 14:34 16:38 20:59 WBC 7.2 RBC 6.13 H Hgb 12.6 L Hct 40.7 L MCV 66.4 L MCH 20.6 L MCHC 31.0 RDW 17.1 H Plt Count 276 MPV 9.0 L Immature Gran % (Auto) 0.6 H Neut % (Auto) 65.3 Lymph % (Auto) 22.1 [place] % (Auto) 8.1 Eos % (Auto) 2.9 Baso % (Auto) 1.0 Lymph # (Auto) 1.6 [place] # (Auto) 0.6 Eos # (Auto) 0.2 Baso # (Auto) 0.1 Abs Immat Gran (auto) 0.04 H Absolute Neuts (auto) 4.7 Absolute Nucleated RBC 0.000 Nucleated RBC % (auto) 0.0 PT 12.0 INR 1.0 Sodium 141 Potassium 4.3 Chloride 106 Carbon Dioxide 28 Anion Gap 11 L BUN 19 H Creatinine 0.90 Estim Creat Clear Calc 132.0 Estimated GFR > 60 POC Glucose 95 Random Glucose 112 Calcium 9.1 Magnesium 2.0 Total Bilirubin 0.4 AST 31 ALT 55 H Alkaline Phosphatase 78 Troponin I High Sens < 2.7 < 2.7 Total Protein 6.7 Albumin 4.4 Triglycerides Cholesterol LDL Cholesterol, Calc HDL Cholesterol 11/28/24 11/28/24 11/28/24 01:45 07:13 08:10 WBC 6.9 RBC 6.05 H Hgb 12.5 L Hct 39.8 L MCV 65.8 L MCH 20.7 L MCHC 31.4 RDW 15.9 Plt Count 260 MPV 9.0 L Immature Gran % (Auto) 0.1 Neut % (Auto) 64.7 Lymph % (Auto) 26.1 [place] % (Auto) 5.0 Eos % (Auto) 3.2 Baso % (Auto) 0.9 Lymph # (Auto) 1.8 [place] # (Auto) 0.3 Eos # (Auto) 0.2 Baso # (Auto) 0.1 Abs Immat Gran (auto) 0.01 Absolute Neuts (auto) 4.4 Absolute Nucleated RBC 0.000 Nucleated RBC % (auto) 0.0 PT INR Sodium 139 Potassium 3.9 Chloride 105 Carbon Dioxide 27 Anion Gap 11 L BUN 16 Creatinine 0.94 Estim Creat Clear Calc 126.4 Estimated GFR > 60 POC Glucose 163 H Random Glucose 214 H Calcium 8.7 Magnesium Total Bilirubin AST ALT Alkaline Phosphatase Troponin I High Sens < 2.7 Total Protein Albumin Triglycerides 177 H Cholesterol 178 LDL Cholesterol, Calc 99 HDL Cholesterol 44 Discharge Plan Discharge Anticipated Discharge Date/Time: 11/28/24 11:53 Patient Disposition: Home, Self-Care Discharge Diagnosis: chest pain Referrals: Umagn Avendaño MD [Primary Care Provider, Internal Medicine] - 1 Week Discharge Medications: Continued Mounjaro 7.5 mg/0.5 mL pen injector 7.5 mg SUBCUT WE melatonin 5 mg Tablet 5 - 10 mg PO BEDTIME PRN (Reason: Sleep) Discharge Orders: Discharge Order (Routine); Ordered 11/28/24 Ordered By: Joby Schuler Diet: Advance to usual diet Activity on Discharge: As tolerated Stand Alone Forms: Patient Portal Discharge page Print Language: Slovak Care Plan Goals: recovery Health Concerns: chest pain Plan of Treatment: follow up with cardiology Assessment: see above
[2024-11-28 12:00] LABS: Glucose, Whole Blood 93 mg/dL (60-115)
[2024-11-28 12:28] VITALS: BP 107/64; PULSE 71; RESP 18; TEMP 36.6; O2SAT 96
--- NOTE | 2024-11-28 13:54 | MHC.CM.PN ---
PT DISCHARGED PRIOR TO BEING SEEN BY CM HE DISCHARGED HOME WITH NO SERVICES AND PER EHR, IS INDEPENDENT WITH NO SERVICES PT ARRANGED HIS OWN TRANSPORT HOME
== END 2024-11-28 16:10 | disposition home or self-care (01) ==
LOC: HO.ED 20:08 → HO.EDOVER 20:09
PROVIDERS: Physician Assistant Medical; Admitting Provider Internal Medicine; Emergency Provider Student in an Organized Health Care Education/Training Program; PCP Internal Medicine; Visit Provider Internal Medicine
DX: R07.9 Chest pain, unspecified (principal); M25.512 Pain in left shoulder; E11.9 Type 2 diabetes mellitus without complications; D56.3 Thalassemia minor; G47.33 Obstructive sleep apnea (adult) (pediatric); D50.8 Other iron deficiency anemias; E66.01 Morbid (severe) obesity due to excess calories; Z68.42 Body mass index [BMI] 45.0-49.9, adult; Z99.89 Dependence on other enabling machines and devices
CPT/HCPCS: 36415; 71046; 80048; 80053; 80061; 82947; 83735; 84484; 85025; 85610; 93005; 93017; 93306; 94660; 96360; 96372; 99222; 99285; J1650; Q9957

== ENCOUNTER → 2024-11-27 13:31 | Outpatient (BNV) | payer MEDICAID, SELFPAY | PROVIDERS: Emergency Provider Student in an Organized Health Care Education/Training Program; PCP Internal Medicine; Visit Provider Internal Medicine | DX: R94.31 Abnormal electrocardiogram [ECG] [EKG] (principal); R07.89 Other chest pain | CPT/HCPCS: 93010 ==

== ENCOUNTER → 2024-11-27 13:54 | Outpatient (BNV) | payer MEDICAID, SELFPAY | PROVIDERS: Visit Provider Radiology Diagnostic Radiology | DX: R07.89 Other chest pain (principal) | CPT/HCPCS: 71046 ==

== ENCOUNTER 2024-11-27 20:05 | Outpatient (BNV) | payer MEDICAID, SELFPAY | END 2024-11-28 07:00 | PROVIDERS: Admitting Provider Internal Medicine; Emergency Provider Student in an Organized Health Care Education/Training Program; PCP Internal Medicine; Visit Provider Internal Medicine | DX: R07.89 Other chest pain (principal); R06.02 Shortness of breath; R53.83 Other fatigue | CPT/HCPCS: 93016; 93018; 93350; 93352 ==

== ENCOUNTER → 2024-11-27 20:05 | Outpatient (BNV) | payer MEDICAID, SELFPAY | PROVIDERS: Admitting Provider Internal Medicine; Emergency Provider Student in an Organized Health Care Education/Training Program; PCP Internal Medicine; Visit Provider Internal Medicine | DX: R07.9 Chest pain, unspecified (principal) | CPT/HCPCS: 99222; 99239; 99499 ==

== ENCOUNTER → 2024-11-27 20:05 | Outpatient (BNV) | payer MEDICAID, SELFPAY | PROVIDERS: Admitting Provider Internal Medicine; Emergency Provider Student in an Organized Health Care Education/Training Program; PCP Internal Medicine; Visit Provider Internal Medicine | DX: R07.9 Chest pain, unspecified (principal) | CPT/HCPCS: 99223 ==

== ENCOUNTER 2024-12-27 12:35 | Outpatient (REF) | payer MEDICAID, SELFPAY ==
[2024-12-27 14:05] LABS: Anion Gap 13 (12-20); Blood Urea Nitrogen 21 mg/dL (9-16); Calcium 9.3 mg/dL (8.4-10.2); Carbon Dioxide 27 mmol/L (22-29); Chloride 107 mmol/L (96-108); Estimated Glomerular Filt Rate > 60; Potassium 4.0 mmol/L (3.3-5.1); Sodium 143 mmol/L (135-145)
== END 2024-12-27 12:36 | disposition home or self-care (01) ==
LOC: HO.LAB 12:35
PROVIDERS: Referring Provider Internal Medicine
DX: R07.9 Chest pain, unspecified (principal)
CPT/HCPCS: 36415; 80048

== ENCOUNTER 2025-01-31 13:11 | Outpatient (AMB) | payer MEDICAID, SELFPAY ==
[2025-01-31 13:24] VITALS: BP 110/62; PULSE 92; BMI 48.0
--- NOTE | 2025-01-31 13:24 | A.OFFVIS_ITS ---
Vital Signs 01/31/25 13:24 Height 5 ft 7 in Weight 306 lb 7.08 oz BMI 48.0 BP 110/62 Blood Pressure Location Lt brachial Position Sitting Pulse 92 Pulse Source Pulse Oximeter Intake Visit Reasons: f/up cta r/s 01-30-25 Allergies amoxicillin Adverse Reaction (Verified 11/27/24 13:52) Diarrhea clindamycin Adverse Reaction (Verified 11/27/24 13:52) Diarrhea Medication List - Last Reconciled 01/31/25 by Layo Kirby MD melatonin 5 - 10 mg PO BEDTIME PRN tirzepatide (Mounjaro) 7.5 mg subcut WE HPI Comments Details: Jaime returns for follow-up. Recently seen in consultation regarding chest pains. He was describing a sensation of chest fullness in the left upper chest near the shoulder area happening somewhat randomly. That led to ER visit. EKG with no acute changes and troponins were unremarkable. He underwent an ETT and echocardiogram and he was discharged home. As an outpatient, he underwent coronary CTA. Currently, he states he feels good. He has got no cardiac symptoms. He remains obese. Diabetic on medications. Otherwise, no angina or any other cardiac symptoms at this time. [facility] Medical History (Updated 01/31/25 @ 14:00 by Layo Kirby MD) Obstructive sleep apnea on CPAP High altitude sickness Type 2 diabetes mellitus Obesity Thalassemia minor Surgical History (Updated 11/27/24 @ 20:55 by Yaz Martinez MD) History of inguinal herniorrhaphy H/O Achilles tendon repair History of testicular surgery Family History (Updated 11/28/24 @ 09:06 by Layo Kirby MD) Father Myocardial infarction Stroke Mother DVT (deep venous thrombosis) Congestive heart failure Pacemaker Social History Alcohol intake: current Patient Tobacco Use Status: Tobacco use Unknown Review of Systems Const Denies weakness ENT Denies dizziness Card Denies chest pain, Denies chest pain with activity, Denies syncope, Denies rapid heart rate, Denies pedal edema, Denies edema, Denies leg edema, Denies lightheadedness, Denies palpitations, Denies dyspnea, Denies dyspnea on exertion and Denies orthopnea Resp Denies cough, Denies dyspnea and Denies dyspnea on exertion GI Denies hematochezia and Denies change in stool character Musc Denies abnormal gait, Denies muscle cramps, Denies muscle weakness, Denies numbness, Denies radiating pain into limb and Denies tingling Neuro Denies abnormal gait, Denies dizziness, Denies syncope, Denies numbness, Denies tingling and Denies weakness Endo Denies palpitations Physical Exam Vital Signs: Last Vital Signs Pulse 92 01/31/25 13:24 BP 110/62 01/31/25 13:24 BMI result Body Mass Index 48.0 Const General: comfortable and no acute distress Orientation/consciousness: patient oriented x3 HEENT Other: Unremarkable Head: Yes normal to inspection Neck Neck: Yes normal visual inspection Chest Chest palpation & inspection: normal inspection of the chest Resp Auscultation: clear to auscultation bilaterally Cardio Palpation: normal PMI Heart sounds: S1 normal heart sound present, S2 normal heart sound present, no gallops, no murmurs and no rubs GI Palpation (GI): Soft to palpation Back/Spine/Pelvis Other: unremarkable Skin General skin exam: no rashes or lesions noted Neuro General: patient oriented x3 Extrem General: Yes normal to inspection Psych Mental Status: mental status grossly normal Assessment & Plan Assessment & Plan (1) Atherosclerotic cardiovascular disease: Code(s): I25.10 - Atherosclerotic heart disease of [place] coronary artery without angina pectoris Category: Medical (2) Chest pain: Code(s): R07.9 - Chest pain, unspecified Category: Medical Qualifiers: Chest pain type: unspecified Qualified Code(s): R07.9 - Chest pain, unspecified (3) Obesity: Code(s): E66.9 - Obesity, unspecified Category: Medical (4) Type 2 diabetes mellitus: Code(s): E11.9 - Type 2 diabetes mellitus without complications Category: Medical Plan Cardiac studies reviewed. Normal high sensitivity troponins. In the echocardiogram, LVEF 63%. No significant valvular findings. In the ETT, he was able to exercise for 6.7 METS on Gumaro protocol. Had s hortness of breath. No EKG evidence of ischemia. In the coronary CTA, mild mid circumflex stenosis in the 25-49% range. Mild stenosis versus artifact in the distal LAD. Otherwise, no significant disease. Overall, obesity, mild coronary disease, likely noncardiac chest pains. Main recommendation would be weight loss. We discussed about this at length today. With regard to specific treatment of coronary disease, to start statins. As he lives in the [facility] [place], we agreed that it would be preferable to get this arranged through his own PCP and possibly consider local cardiology referral. Otherwise, he will call us with ongoing concerns. Total time spent including review of data, counseling, documentation, coordination of care-33 minutes. Coding Level of Care Code Est Pt Level 4 (19674) Complex visit Add On G2211 Diagnoses Atherosclerotic cardiovascular disease I25.10 Chest pain R07.9 Chest pain type: unspecified Obesity E66.9 Type 2 diabetes mellitus E11.9
== END 2025-01-31 13:55 | disposition home or self-care (01) ==
LOC: HO.HCS 13:11
PROVIDERS: Visit Provider Internal Medicine
DX: I25.10 Atherosclerotic heart disease of native coronary artery without angina pectoris (principal); R07.9 Chest pain, unspecified; E66.9 Obesity, unspecified; E11.9 Type 2 diabetes mellitus without complications
CPT/HCPCS: 99214; G2211

== ENCOUNTER → 2025-01-31 13:11 | Outpatient (BNVA) | payer MEDICAID, SELFPAY | PROVIDERS: Visit Provider Internal Medicine | DX: I25.10 Atherosclerotic heart disease of native coronary artery without angina pectoris (principal); E11.9 Type 2 diabetes mellitus without complications; E66.9 Obesity, unspecified; R07.89 Other chest pain; Z68.42 Body mass index [BMI] 45.0-49.9, adult | CPT/HCPCS: 99212 ==